=== PATIENT | female | born 1955 | race Caucasian/White ===

== ENCOUNTER 2016-07-08 18:20 | Emergency (ER) | payer SELFPAY ==
--- NOTE | ~2016-07-08 | CR63 ---
[facility] A Service of [facility] & [facility] RADIOLOGY TEXT RESULTS PATIENT: HARRISON VIRGEN LOCATION: [facility] : 59 UNIT #: [id number] AGE: [address]: Ramsey Demarco MD SEX: F ORDER DR: [id number] [facility] [address] [place], [place] [address] [id number] MR#: [id number] Acc #: [id number] NAME: HARRISON VIRGEN : 1955 SEX: F STUDY DATE/TIME: 07/08/2016 19:25 UNIT: [facility] ROOM: STUDY DESCRIPTION: CR Chest 2 View Attending Physician: Ramsey Demarco M.D. Referring Physician: Primary Care Physician No Ordering Physician: Ramsey Demarco M.D. Primary Care Physician: Primary Care Physician No MEDICAL IMAGING REPORT This report is preliminary unless electronic signature is present EXAM Chest PA and lateral, 07/08/2016 HISTORY Shortness of breath, fever and chest congestion, left side chest pain for 2 days. Smoking history. FINDINGS The cardiac and mediastinal structures are stable compared with 04/13/2015. The lungs are hyperinflated with emphysematous and fibrotic changes characteristic of COPD. There is an ill-defined nodular infiltrate or possibly mass in the left upper lobe measuring 1.5 cm. Correlation with chest CT with contrast is recommended for further evaluation. Infiltrate or fibrosis is seen in the left lung base. There are no pleural effusions. No pneumothorax. IMPRESSION 1. 1.5-cm nodule in the left upper lobe. Neoplasm is not excluded. Correlation with chest CT with contrast is recommended for further evaluation. 2. COPD with infiltrate or fibrosis left lower lobe. STAT * RESULT Dictated by... Grant Currie M.D. THIS IS AN ELECTRONICALLY VERIFIED REPORT Grant Currie M.D. at 07/09/2016 2:54 PM KRT/psc [facility] A Service of [facility] & [facility] RADIOLOGY TEXT RESULTS PATIENT: HARRISON VIRGEN LOCATION: [facility] : 59 UNIT #: [id number] AGE: [address]: Ramsey Demarco MD SEX: F ORDER DR: TD: 07/09/2016 01:37 JOB #: [id number] MEDICAL IMAGING REPORT COPY
--- NOTE | ~2016-07-08 | EKG ---
PATIENT: HARRISON VIRGEN UNIT #: [id number] Ventricular Rate: 101 BPM Atrial Rate: 101 BPM P-R Interval: 130 ms QRS Duration: 78 ms Q-T Interval: 356 ms QTC Calculation(Bezet): 461 ms P [place]: 88 degrees Calculated R [place]: 74 degrees Calculated T [place]: 77 degrees Diagnosis Line: Sinus tachycardia Diagnosis Line: Right atrial enlargement Diagnosis Line: Minimal voltage criteria for LVH, may be normal Diagnosis Line: variant Diagnosis Line: Borderline ECG Diagnosis Line: When compared with ECG of 11-APR-2015 21:07, Diagnosis Line: No significant change was found Diagnosis Line: Confirmed by MIKI CRAWLEY MD ([id number]) on Diagnosis Line: 07/11/2016 11:56:04 PM INTERPRETING MD: MISBAH VELA
[~2016-07-08 18:20] MED LIST: ADVAIR 250-501 EACH IH; ADVAIR 2501 DISK W/D PO; ALBUTEROL MININEB NEB; ALBUTEROL17 GM INH; AUGMENTIN875 M1 PO; BENTYL20 MG PO; COMBIVENT MININEB; COMBIVENT MININEB INH; CYANOCOBALAM1000 MCG PO; DELSYM COUGH C PO; DUONEB; FLEXERIL10 MG PO; HUMIBID-LA600 MG PO; HYDROCODON-ACE1 EAC7 PO; HYDROCODON-ACE1 EAC9 PO; LEVAQUIN PO; LEVAQUIN750 M1 PO; LEVAQUIN750 MG PO; LORTAB 7.5-5001 TAB PO; MOTRIN IB200 M1 PO; MUCINEX100 MG/BOX PO; NYSTATIN5 ML PO; OMEPRAZOLE20 M1 PO; PHENERGAN PO; PHENERGAN SUPP25 MG PR; PHENERGAN25 M1 PO; PHENERGAN25 MG PO; PREDNISONE PO; PREDNISONE10 MG PO; PROTONIX PO; SOLU-MEDRO40 MG/1 ML IVP; SYMBICORT INH; TYLENOL325 M1 PO; VITAMIN B-121000 MC1 PO; VOLTAREN75 MG PO; ZITHROMAX PO; ZOFRAN ODT4 MG PO
[2016-07-08 19:20] LABS: BASOPHIL% 0.2 % (0-2.5); EOSINOPHIL% 0.1 % (0.0-7.0); HEMATOCRIT 36.3 % (35.0-45.0); HEMOGLOBIN 12.1 gm/dL (12.0-16.0); LYMPHOCYTE# 1.1 X10e3 (1.0-3.5); LYMPHOCYTE% 15.2 % (17.0-45.0); MEAN CELL VOLUME 99.2 FL (83-96); MEAN CORPUSCULAR HGB CONC 33.3 g/dL (30-36); MEAN PLATELET VOLUME 7.2 FL (6.5-11.5); MONOCYTE# 1.2 X10e3 (0-1.0); NEUTROPHIL% 68.5 % (40-75); PLATELET COUNT 213 X10e3 (140-420); RED BLOOD COUNT 3.66 X10e (3.90-5.30); RED CELL DISTRIBUTION WIDTH 15.4 % (11.0-15.5); WHITE BLOOD COUNT 7.3 X10e3 (4.0-10.5)
[2016-07-08 19:28] LABS: DIFF IND NO
[2016-07-08 19:48] LABS: INFLUENZA A NEG (NEG); INFLUENZA B NEG (NEG)
[2016-07-08 19:59] LABS: ALBUMIN SERUM 3.7 g/dL (3.5-5.0); ALKALINE PHOSPHATASE 106 U/L (32-92); ALT (SGPT) 22 U/L (10-40); AST (SGOT) 26 U/L (10-42); BILIRUBIN, DIRECT 0.1 mg/dL (0.0-0.2); BILIRUBIN,INDIRECT 0.4 mg/dL (0.0-0.9); BILIRUBIN,TOTAL 0.5 mg/dL (0.2-2.0); BLOOD UREA NITROGEN 15 mg/dL (9-23); CALCIUM SERUM 8.5 mg/dL (8.4-10.2); CARBON DIOXIDE 25 mmol/L (22-31); CHLORIDE 94 mmol/L (100-111); CREATININE SERUM 0.6 mg/dL (0.6-1.4); GLOM FILT RATE Estimated ABOVE60 mL/min (>60); GLUCOSE FASTING 108 mg/dL (70-110); SODIUM 131 mmol/L (135-145)
[2016-07-08 20:05] LABS: POTASSIUM 2.8 mmol/L (3.5-5.1)
[2016-07-08 20:59] LABS: POC - CKMB 2.3 ng/mL (0.0-7.9); POC - TROPONIN <0.05 ng/mL (<=0.05)
[2016-07-12] MEDS ORDERED: PROMETHAZINE D118 ML PO (14:43)
[2016-07-12] MEDS ORDERED: PREDNISONE PO (14:44)
== END 2016-07-08 21:15 | disposition home or self-care (01) ==
LOC: CED 18:20
PROVIDERS: Emergency Medicine
DX: J44.1 Chronic obstructive pulmonary disease with (acute) exacerbation (principal); R22.2 Localized swelling, mass and lump, trunk; Z90.49 Acquired absence of other specified parts of digestive tract; F17.200 Nicotine dependence, unspecified, uncomplicated
CPT/HCPCS: 36415; 71020; 80048; 80076; 82553; 83735; 83880; 84484; 85025; 87804; 93005; 94640; 96361; 96365; 96375; 99284; J2405; J2930

== ENCOUNTER 2016-07-12 14:48 | Inpatient (IN) | payer SELFPAY ==
--- NOTE | ~2016-07-12 | CR72 ---
[facility] A Service of [facility] RADIOLOGY TEXT RESULTS PATIENT: HARRISON VIRGEN LOCATION: [facility] : 59 UNIT #: [id number] AGE: [address]: Sari Benz MD SEX: F ORDER DR: [id number] [place] [id number] [facility] [place], [place] [address] [id number] E MR#: [id number] Acc #: [id number] NAME: HARRISON VIRGEN. : 1955 SEX: F STUDY DATE/TIME: 07/12/2016 14:21 UNIT: [facility] ROOM: STUDY DESCRIPTION: CR Chest Single View Portable Attending Physician: Sonido Graham M.D. Ordering Physician: Rajan Brooks M.D. Primary Care Physician: Primary Care Physician No MEDICAL IMAGING REPORT This report is preliminary unless electronic signature is present EXAM Portable chest INDICATIONS Shortness of air for 2 days. COMPARISON 07/08/2016 FINDINGS A portable view of the chest was obtained. Heart size and vascularity are normal. The lungs are hyperinflated. There is faint infiltrate throughout most of the right lower lobe, which is new from the prior study. The left lung is clear. There is a nodular density in the left upper lobe measuring about 9 mm in diameter. There are CT chests from 04/12/2015 and 01/21/2015 and there has been an 11-mm density in that region on both those exams without change. IMPRESSION 1. Emphysematous changes. 2. Faint infiltrate in the right lower lobe, which is fairly extensive. 3. Nodular density left upper lobe, which seems to correspond with the nodular density seen on chest CTs in April 2015 and December 2014 without change. Dictated by... Maycol Conway M.D. THIS IS AN ELECTRONICALLY VERIFIED REPORT Maycol Conway M.D. at 07/12/2016 9:46 PM FEL/psc [facility] A Service of [facility] RADIOLOGY TEXT RESULTS PATIENT: HARRISON VIRGEN LOCATION: [facility] [id number] : [birth year] UNIT #: [id number] AGE: [address]: Sari Benz MD SEX: F ORDER DR: TD: 07/12/2016 20:13 JOB #: [id number] MEDICAL IMAGING REPORT COPY
--- NOTE | ~2016-07-12 | EKG ---
PATIENT: HARRISON VIRGEN UNIT #: [id number] Ventricular Rate: 137 BPM Atrial Rate: 137 BPM P-R Interval: 130 ms QRS Duration: 74 ms Q-T Interval: 280 ms QTC Calculation(Bezet): 422 ms P [place]: 89 degrees Calculated R [place]: 82 degrees Calculated T [place]: 93 degrees Diagnosis Line: Sinus tachycardia with Premature atrial complexes Diagnosis Line: Right atrial enlargement Diagnosis Line: Left ventricular hypertrophy with repolarization Diagnosis Line: abnormality Diagnosis Line: Abnormal ECG Diagnosis Line: When compared with ECG of 08-JUL-2016 18:17, Diagnosis Line: Premature atrial complexes are now Present Diagnosis Line: Non-specific change in ST segment in Anterior Diagnosis Line: leads Diagnosis Line: Nonspecific T wave abnormality now evident in Diagnosis Line: Inferior leads Diagnosis Line: T wave inversion now evident in Anterolateral Diagnosis Line: leads Diagnosis Line: Confirmed by MIKI CRAWLEY MD ([id number]) on Diagnosis Line: 07/13/2016 8:16:57 AM INTERPRETING MD: MISBAH VELA
--- NOTE | ~2016-07-12 | DS ---
Unit #: [id number] #: [id number] Patient: HARRISON VIRGEN [id number] [address] [address] [id number] I MR#: [id number] NAME: HARRISON VIRGEN. ROOM: 321 Age: 60 Sex: F Admission Date: 07/12/2016 : 1955 Discharge Date: Attending Physician: Edi Adams M.D. Primary Care Physician: No Primary Care Physician DISCHARGE SUMMARY DIAGNOSES ON ADMISSION 1. Acute respiratory failure. 2. Acute exacerbation of chronic obstructive pulmonary disease. DIAGNOSES ON DISCHARGE 1. Acute exacerbation of chronic obstructive pulmonary disease, improved. 2. Pneumonia. 3. Bronchiectasis. 4. Chronic obstructive pulmonary disease. 5. History of pulmonary embolism. 6. Bilateral pneumonia. CONSULTATIONS Dr. Garibay - Pulmonary consultation. LABS AND PROCEDURES DONE The patient's creatinine is 0.4, sodium 136, potassium is 3.8. WBC is 12.3, hemoglobin is 10.8, platelet count is 279. Potassium is 3.8, magnesium is 1.8 today. Urine for legionella antigen was negative. Urine for Strep pneumonia antigen was negative. Blood culture did not reveal any acute growth so far. CT scan of chest revealed dense consolidation in bilateral lobes and right lower, middle lobe and upper lobe and left lower lobe. Troponin was less than 0.03. HOSPITAL COURSE 60-year-old female was admitted to [facility] with shortness of air. Details are as per admission H and P. The patient was seen by Dr. Garibay in consultation and was treated with IV steroids and antibiotics. Patient has responded well to treatment and is feeling much better and wants to go home today. Therefore, she will be discharged home. Today on physical examination, her VITAL SIGNS reveal a temperature of 98.1, pulse is 82/minute, respiratory rate is 18/minute, blood pressure is 64/77. HEENT examination revealed no conjunctival congestion. Sclerae is Unit #: [id number] #: [id number] Patient: HARRISON VIRGEN not icteric. NECK is supple. Trachea is central. RESPIRATORY examination revealed breath sounds equal bilaterally. ABDOMEN is soft, nontender. Bowel sounds are present. EXTREMITIES reveals trace pedal edema. NEUROLOGICALLY, patient is alert to person, place and time. Strength is 4+ bilaterally. SKIN is warm and dry. RECOMMENDATIONS ON DISCHARGE Condition is stable. Activity is as tolerated. MEDICATIONS 1. Prednisone 20 mg, two tablets p.o. daily for five days. 2. DC Augmentin 875 mg, one p.o. b.i.d. for five days. 3. Zithromax 500 mg. 4. Patient stated that she has Symbicort inhaler at home. Therefore, I will advise her to use that and I will write her a prescription. 5. Will also write her a script for albuterol MDI. The plan was discussed in detail with patient who showed complete understanding. She was advised to call primary care physician or go to ER if her condition changes. FOLLOWUP Patient is advised to follow up with primary care physician in one week and follow up with Dr. Garibay as recommended. Dr. Garibay has recommended patient to follow up in two weeks and also have a CT scan of chest with him in two months. Dictated by... Jo Ann Joe/denton TD: 07/15/2016 12:19 JOB #: [id number] CC: Jose Garibay M.D. [facility], [facility]. DISCHARGE SUMMARY X Edi Adams MD DISCHARGE SUMMARY
--- NOTE | ~2016-07-12 | HP ---
Unit #: [id number] #: [id number] Patient: HARRISON VIRGEN [id number] [address] [place], [place] [address] [id number] E MR#: [id number] NAME: HARRISON VIRGEN ROOM: Age: 60 Sex: F Admission Date: 07/12/2016 : 1955 Attending Physician: Sonido Graham M.D. HISTORY AND PHYSICAL CHIEF COMPLAINT Short of breath, nausea, and pain. HISTORY OF PRESENT ILLNESS The patient is a 60-year-old female with a past medical history of COPD, pulmonary embolism, pneumothorax, and bowel obstruction, who presented to the emergency department for evaluation of the above. The patient states that she has not been feeling well since July 09, 2016. She states that she has had increasing shortness of breath, nonproductive cough, fever, and chills. She was apparently seen in the emergency department on July 08, 2016, for the same problem. She was placed on prednisone and is not feeling any better. In the emergency department, initial pulse and blood pressure were 137 and 123/61, respectively. Oxygen saturation was 91% on room air. Chest x-ray showed a right lower lobe infiltrate. CT of the chest, PE protocol, showed no PE. Lactic acid was 3. Arterial blood gas shows a pH of 7.49, PCO2 of 41.5, and PO2 of 58.9 on two liters. She was Zosyn, tobramycin, and linezolid in the emergency department, as well as 40 mEq of potassium and two liters of normal saline. She is being admitted to [facility] for evaluation and further treatment. PAST MEDICAL HISTORY 1. Admission to [facility] April 11-2014, for acute respiratory failure and healthcare-associated pneumonia. 2. Chronic obstructive pulmonary disease, not on home oxygen. The patient has seen Dr. Garibay in the past. 3. History of PE. 4. History of pneumothorax. 5. History of bowel obstruction. 6. Echocardiogram December 02, 2008, showed normal left ventricular systolic function. Right ventricular systolic function was also noted to be normal. PAST SURGICAL HISTORY 1. Surgery for bowel obstruction. 2. Hysterectomy. 3. Tonsillectomy. 4. Appendectomy. 5. section. 6. Cholecystectomy. SOCIAL HISTORY Unit #: [id number] #: [id number] Patient: HARRISON VIRGEN The patient continues to smoke electronic cigarettes. She denies alcohol or illicit drug use. She lives with her . Her code status is a Full Code. FAMILY HISTORY Notable for her father dying of lung cancer. ALLERGIES HEPARIN AND VANCOMYCIN. HOME MEDICATIONS Per the Discharge Summary from April 2015 include albuterol and Symbicort. Home medications will need to be reviewed and verified. REVIEW OF SYSTEMS A complete review of systems is negative except as indicated in the History of Present Illness. The patient states that she has maintained her weight. PHYSICAL EXAMINATION VITAL SIGNS: Temperature is 98, pulse 137, respirations 18, blood pressure 123/61, and oxygen saturation 91% on room air. GENERAL: Patient is a female who is awake and alert. She is somewhat anxious. HEENT: Head is atraumatic. Mucous membranes are moist. NECK: Supple. Trachea is midline. CARDIOVASCULAR: Tachycardia in the 110s. LUNGS: Decreased breath sounds bilaterally. Breathing is mildly labored with conversation. ABDOMEN: Soft and nontender with bowel sounds present in all four quadrants. EXTREMITIES: Nontender with no pedal edema. NEUROLOGIC: Patient is awake and alert. She follows commands. PSYCHIATRIC: Patient is anxious. She is cooperative. SKIN: Skin of examined areas is warm and dry. DIAGNOSTIC STUDIES LABORATORY: Arterial blood gas shows a pH of 7.491, PCO2 of 41.5, and PO2 of 58.9, on two liters. Lactic acid is 3. Comprehensive metabolic panel notable for potassium of 2.9, chloride 92, glucose 181, BUN and creatinine 25 and 0.8, respectively, alkaline phosphatase is 105, and albumin is 3.4. Complete blood count notable for white blood cell count of 23.7. BNP is 69. INR is 1.1. D-dimer was 1212. IMAGING: Chest x-ray shows a right lower lobe infiltrate. CT of the chest, PE protocol, shows no PE. CARDIOLOGY: EKG showed sinus tachycardia with premature atrial complex at a rate of 137 beats per minute. ASSESSMENT The patient is a 60-year-old female with: 1. Acute respiratory failure, hypoxic. 2. Pneumonia, community acquired. 3. Sepsis with lactic acid of 3. 4. Chronic obstructive pulmonary disease exacerbation with continued tobacco abuse. 5. Hypokalemia. The patient received 40 mEq of potassium orally in the Unit #: [id number] #: [id number] Patient: HARRISON VIRGEN emergency department. 6. History of pulmonary embolism. 7. History of pneumothorax. 8. History of bowel obstruction. PLAN 1. Admit to intermediate level. 2. Regular diet. 3. Normal saline at 75 mL/hour. 4. Supplemental oxygen 2-4 liters to maintain saturations greater than 92%. 5. Blood cultures x2. 6. Sputum culture and sensitivity. 7. Rocephin IV and azithromycin IV pending further workup. 8. DuoNebs q.4 hours while awake and q.2 hours p.r.n. 9. Solu-Medrol 80 mg IV q.12 hours. 10. Mucinex 600 mg p.o. b.i.d. 11. Procalcitonin level. 12. Consult Dr. Garibay regarding respiratory failure and pneumonia. 13. Sepsis protocol with repeat lactic acid. 14. Serial cardiac enzymes. 15. Check magnesium level. 16. Potassium/magnesium protocol. 17. Repeat labs in the morning including magnesium. 18. Protonix for GI prophylaxis since the patient will be on Solu-Medrol. 19. SCDs for DVT prophylaxis. 20. Additional workup and consultants based on above. 21. Regarding code status, the patient is a Full Code. 1. Dictated by Jo Ann Rebollar/aba TD: 07/12/2016 20:37 JOB #: [id number] HISTORY AND PHYSICAL X Sari Benz MD X HISTORY AND PHYSICAL
--- NOTE | ~2016-07-12 | CT16 ---
[facility] A Service of [facility] & [facility] RADIOLOGY TEXT RESULTS PATIENT: HARRISON VIRGEN LOCATION: [facility] 321-01 : 59 UNIT #: [id number] AGE: [address]: Edi Adams MD SEX: F ORDER DR: [id number] [facility] [address] [place], [place] [address] [id number] I MR#: [id number] #: [id number] NAME: HARRISON VIRGEN. : 1955 SEX: F STUDY DATE/TIME: 07/12/2016 17:36 UNIT: C3A PCU ROOM: 321 STUDY DESCRIPTION: CT Angio Chest for PE Attending Physician: Sari Benz M.D. Ordering Physician: Ed Doctor [id number] [facility] Primary Care Physician: Primary Care Physician No MEDICAL IMAGING REPORT This report is preliminary unless electronic signature is present EXAM CTA chest with contrast PE protocol, 07/12/2016 HISTORY 60-year-old female with shortness of air and chest pain for 3 days. COMPARISON CTA chest, 04/12/2015 TECHNIQUE Helical scan performed through the chest following the timed bolus administration of IV contrast per PE protocol. Coronal 3-D MIP reconstructions. Sagittal reformatted images. This CT exam was performed with one or more of the following radiation dose reduction techniques: automatic exposure control, adjustment of mA and/or kV according to patient size, and iterative reconstruction. FINDINGS There is adequate opacification of the pulmonary arteries but no filling defects noted. Thoracic aorta normal in course and caliber without dissection. Heart size is normal. No pericardial effusion. Multiple prominent mediastinal lymph nodes are again noted, similar to prior exam. These may be reactive. There is dense consolidation in the left lower lobe with a suspected trace left pleural effusion. Patchy infiltrates noted throughout the right lower lobe and medial aspect of the right middle lobe. There is some minimal patchy infiltrate in the lateral aspect of the right upper lobe. Findings most consistent with multifocal pneumonia. The bronchi in the bilateral lower lobes are fluid filled. Correlation for aspiration recommended. There is again noted a spiculated nodular density in the lateral aspect of the left upper lobe, which is not significantly changed [facility] A Service of [facility] & [facility] RADIOLOGY TEXT RESULTS PATIENT: HARRISON VIRGEN LOCATION: [facility]A 321-01 : 59 UNIT #: [id number] AGE: [address]: Edi Adams MD SEX: F ORDER DR: from prior chest CTs dating back to 04/21/2014. This most likely represents chronic scarring given greater than 2 years of stability. There are severe emphysematous changes throughout both lungs. No pneumothorax. Incidental scanning through the upper abdomen is unremarkable. No acute bony abnormality. IMPRESSION 1. Negative for pulmonary emboli. 2. Negative for thoracic aortic aneurysm/dissection. 3. Dense consolidation in the left lower lobe with patchy infiltrates in the right lower lobe, right middle lobe, and right upper lobe. There are also fluid-filled bronchi in the bilateral lower lobes. Findings most consistent with multifocal pneumonia. Aspiration is not excluded given the fluid filled lower lobe bronchi. 4. Severe emphysema. 5. Spiculated nodular density in the left upper lobe is not significantly changed since at 04/21/2014, most suggestive of chronic scarring giving greater than 2 years of stability. 6. Multiple prominent mediastinal lymph nodes are again noted and not significantly changed from previous examinations in 2014. This may be reactive. Continued followup suggested. Dictated by... Sanya Dos Santos M.D. THIS IS AN ELECTRONICALLY VERIFIED REPORT Sanya Dos Santos M.D. at 07/13/2016 6:47 PM HAMIDA/bryson TD: 07/13/2016 08:30 JOB #: [id number] MEDICAL IMAGING REPORT COPY
--- NOTE | ~2016-07-12 | CO ---
Unit #: [id number] #: [id number] Patient: HARRISON VIRGEN [id number] [address] [place], [place] [address] [id number] MR#: [id number] NAME: HARRISON VIRGEN. ROOM: 321 Age: 60 Sex: F Admission Date: 07/12/2016 : 1955 Attending Physician: Edi Adams M.D. Primary Care Physician: No Primary Care Physician Consultation Date: 07/13/2016 CONSULTATION REPORT REASON FOR CONSULTATION Pneumonia, COPD. HISTORY OF PRESENT ILLNESS This is a 60-year-old female has bad COPD with ongoing active electronic cigarette use who was in the hospital in 2014 with emphysema and pneumonia. She had an abnormal CAT scan with multiple areas of consolidation. At that time she underwent bronchoscopy, which was negative. She was supposed to follow up in my office but did not. When I asked her why, she said, "I just felt better." She has now had a several-day history of increasing shortness of breath, presented to the emergency room here and was told it was her COPD. She did not take antibiotics at that time. She then had fever, malaise, cough but no sputum. In the emergency room her chest x-ray and subsequent CT scan were abnormal, consistent with pneumonia. Fairly dense consolidation in the left lower lobe but not in the same area as previous CT scans. Marked emphysema was noted. She was treated with a variety of antibiotics and currently is on Zithromax and Rocephin and feels better. PAST MEDICAL HISTORY Past medical history is remarkable for emphysema, remote pulmonary embolism, pneumothorax, history of bowel obstruction, and then this pneumonia and abnormal CT scan in 2014. MEDICATIONS AT HOME She is on Symbicort 2 puffs twice a day and Ventolin as needed and states compliance. Other medications are unclear. ALLERGIES Heparin and vancomycin. SOCIAL HISTORY Electronic cigarettes. She still works in an office setting. FAMILY HISTORY No definite emphysema, but her father has lung cancer. REVIEW OF SYSTEMS Fever this weekend. Prior to this she did not have much in the way of wheezing, cough or sputum production. [place] like she was fairly well controlled on her Symbicort. With this she denied wheezing. She had cough but no sputum. No hemoptysis. No chest pain, palpitations, abdominal pain, melena, hematochezia, hematuria, dysuria, focal weakness, paresthesias, leg pain, swelling. She denies any difficulty swallowing. Further review Unit #: [id number] #: [id number] Patient: HARRISON VIRGEN S of systems is negative. PHYSICAL EXAMINATION GENERAL: Examination reveals a patient who is quite thin, but she denies weight loss. VITAL SIGNS: She had a T max of 100.3, now afebrile. Pulse 67, respiratory rate 16, blood pressure 116/65. 5'4", 96 pounds. BMI is 16. Weight has actually increased from 2015 when she weighed 84 pounds. HEENT: Pupils equal, round and reactive to light. Sclerae anicteric. Head atraumatic. Mucous membranes somewhat dry. She does have some natural teeth. NECK: Supple. No supraclavicular or cervical adenopathy appreciated. CHEST: Scattered wheeze, rhonchi. No definite consolidation. CARDIAC: Examination reveals a regular rate and rhythm. No pathologic murmur, rub or gallop. ABDOMEN: Abdomen is soft, nontender. No hepatomegaly or rebound. EXTREMITIES: Extremities reveal no clubbing, cyanosis or edema. No calf tenderness. Decreased muscle mass. NEUROLOGIC: Grossly intact. No focal muscular or sensory deficits. DIAGNOSTIC STUDIES IMAGING: Chest x-ray - Some faint toynp-fdqrtpv-khyy-left infiltrate. LABORATORY EXAMINATION: Arterial blood gases - pH 7.49, pCO2 42, pO2 59, and that was on 2 liters. Her BUN is 11, creatinine 0.4. INR was normal. Cardiac enzymes normal. White blood cell count is 15.4; it was 23.7. Hemoglobin is 10.4; it was 13.4. Suspect that is dilutional. No obvious bleeding noted. She had an nmien-5-sokjfxcoxjj level in the past, which was normal. Blood cultures are pending. Sputum has not been received. In the past no resistant organisms have been identified. CT scan - Fairly densely consolidated area of left lower lobe. Patchy infiltrates right and left. She has a somewhat spiculated area of abnormality in her left upper lobe, and that is stable for 2 years. She has some scattered mucus-filled bronchiectasis, as well. Marked emphysema noted. CARDIOVASCULAR: EKG - P pulmonale. Sinus tachycardia. IMPRESSION 1. Pneumonia, community acquired. Clinically improved. 2. Emphysema with some bronchospasm. 3. Ongoing active electronic cigarette use. 4. Bronchiectasis. 5. Anemia. Suspect, to some degree, dilutional. 6. Remote PE, remote pneumothorax. 7. Noncompliance with office followup. 8. Abnormal EKG. Possible cor pulmonale. PLAN Agree with current antibiotics; however, will change Rocephin to Zithromax for anaerobic coverage. I will ask speech to see for swallow evaluation. Check total immunoglobulin levels. I agree with steroids but will decrease dose and add Symbicort twice a day. Certainly no smoking is of great benefit. I have stressed the need for office followup and short-term CT scan followup. Thank you very much for allowing me to participate in the care of . Unit #: [id number] #: [id number] Patient: HARRISON VIRGEN. Dictated by... Jo Ann Hayes/michaela TD: 07/15/2016 08:50 JOB #: [id number] CONSULTATION REPORT X Jose Garibay MD CONSULTATION REPORT
[2016-07-12 14:36] LABS: ARTERIAL BLD GAS O2 SATURATION 88.8 % (90.0-100.0); ARTERIAL BLOOD GAS CARBOXY HB 1.1 %sat (0.0-9.0); ARTERIAL BLOOD GAS HCO3 31.6 mmol/L; ARTERIAL BLOOD GAS MET HB 0.9 %sat (0.0-2.0); ARTERIAL BLOOD GAS PCO2 41.5 mmHg (35.0-45.0); ARTERIAL BLOOD GAS pH 7.491 (7.350-7.450)
[2016-07-12 14:37] LABS: ARTERIAL BLOOD GAS ALLEN TEST NORMAL; ARTERIAL BLOOD GAS ART SITE RIGHT RADIAL; ARTERIAL BLOOD GAS DELIVERY NASAL CANNULA; ARTERIAL BLOOD GAS PO2 58.9 mmHg (80.0-100); ARTERIAL DRAW? YES
[~2016-07-12 14:48] MED LIST changes: +PROMETHAZINE D118 ML PO
[2016-07-12 15:02] LABS: BASOPHIL% 0.1 % (0-2.5); HEMATOCRIT 41.1 % (35.0-45.0); HEMOGLOBIN 13.4 gm/dL (12.0-16.0); LYMPHOCYTE# 0.6 X10e3 (1.0-3.5); LYMPHOCYTE% 2.5 % (17.0-45.0); MEAN CELL VOLUME 98.8 FL (83-96); MEAN CORPUSCULAR HEMOGLOBIN 32.3 PG (28-34); MEAN CORPUSCULAR HGB CONC 32.7 g/dL (30-36); MEAN PLATELET VOLUME 7.5 FL (6.5-11.5); MONOCYTE# 1.4 X10e3 (0-1.0); MONOCYTE% 5.7 % (3.0-12.0); NEUTROPHIL# 21.7 X10e3 (1.5-7.1); NEUTROPHIL% 91.7 % (40-75); PLATELET COUNT 321 X10e3 (140-420); RED BLOOD COUNT 4.16 X10e (3.90-5.30); RED CELL DISTRIBUTION WIDTH 15.6 % (11.0-15.5); WHITE BLOOD COUNT 23.7 X10e3 (4.0-10.5)
[2016-07-12 15:07] LABS: INR 1.1; PARTIAL THROMBOPLASTIN TIME 34.6 SECONDS (23.5-31.3); PROTHROMBIN TIME (PATIENT) 11.4 SECONDS (9.6-11.5)
[2016-07-12 15:08] LABS: DIFF IND YES
[2016-07-12 15:19] LABS: ALBUMIN SERUM 3.4 g/dL (3.5-5.0); ALKALINE PHOSPHATASE 105 U/L (32-92); ALT (SGPT) 16 U/L (10-40); AST (SGOT) 30 U/L (10-42); BILIRUBIN, DIRECT 0.2 mg/dL (0.0-0.2); BILIRUBIN,INDIRECT 0.4 mg/dL (0.0-0.9); BILIRUBIN,TOTAL 0.6 mg/dL (0.2-2.0); BLOOD UREA NITROGEN 25 mg/dL (9-23); BUN/CREATININE RATIO 31.25; CALCIUM SERUM 8.9 mg/dL (8.4-10.2); CARBON DIOXIDE 29 mmol/L (22-31); CHLORIDE 92 mmol/L (100-111); CREATININE SERUM 0.8 mg/dL (0.6-1.4); GLOM FILT RATE Estimated ABOVE60 mL/min (>60); GLUCOSE FASTING 181 mg/dL (70-110); PROTEIN TOTAL SERUM 8.2 g/dL (6.0-8.3); SODIUM 136 mmol/L (135-145)
[2016-07-12 15:23] LABS: POTASSIUM 2.9 mmol/L (3.5-5.1)
[2016-07-12 15:28] LABS: PLATELET ESTIMATE NORMAL (NORMAL); POIKILOCYTOSIS SL
[2016-07-12 19:47] LABS: MAGNESIUM 2.1 mg/dL (1.6-3.0)
[2016-07-12 20:05] LABS: PROCALCITONIN 6.75 NG/ML
[2016-07-12 23:03] LABS: CK TOTAL 45 IU/L (26-140)
[2016-07-13 05:37] LABS: HEMATOCRIT 31.9 % (35.0-45.0); LYMPHOCYTE# 0.4 X10e3 (1.0-3.5); LYMPHOCYTE% 2.4 % (17.0-45.0); MEAN CORPUSCULAR HEMOGLOBIN 32.1 PG (28-34); MEAN CORPUSCULAR HGB CONC 32.7 g/dL (30-36); MEAN PLATELET VOLUME 6.7 FL (6.5-11.5); MONOCYTE# 0.4 X10e3 (0-1.0); MONOCYTE% 2.3 % (3.0-12.0); NEUTROPHIL# 14.7 X10e3 (1.5-7.1); NEUTROPHIL% 95.3 % (40-75); PLATELET COUNT 216 X10e3 (140-420); RED BLOOD COUNT 3.26 X10e (3.90-5.30); RED CELL DISTRIBUTION WIDTH 15.6 % (11.0-15.5); WHITE BLOOD COUNT 15.4 X10e3 (4.0-10.5)
[2016-07-13 05:38] LABS: DIFF IND NO; HEMOGLOBIN 10.4 gm/dL (12.0-16.0)
[2016-07-13 06:08] LABS: CK TOTAL 38 IU/L (26-140)
[2016-07-13 06:14] LABS: ALBUMIN SERUM 2.6 g/dL (3.5-5.0); ALKALINE PHOSPHATASE 79 U/L (32-92); ALT (SGPT) 19 U/L (10-40); AST (SGOT) 37 U/L (10-42); BILIRUBIN,TOTAL 0.2 mg/dL (0.2-2.0); BLOOD UREA NITROGEN 11 mg/dL (9-23); CALCIUM SERUM 8.4 mg/dL (8.4-10.2); CARBON DIOXIDE 27 mmol/L (22-31); CHLORIDE 97 mmol/L (100-111); CREATININE SERUM 0.4 mg/dL (0.6-1.4); GLOM FILT RATE Estimated ABOVE60 mL/min (>60); GLUCOSE FASTING 161 mg/dL (70-110); MAGNESIUM 1.7 mg/dL (1.6-3.0); POTASSIUM 3.5 mmol/L (3.5-5.1); PROTEIN TOTAL SERUM 6.3 g/dL (6.0-8.3); SODIUM 135 mmol/L (135-145)
[2016-07-14 07:02] LABS: HEMATOCRIT 33.6 % (35.0-45.0); HEMOGLOBIN 10.8 gm/dL (12.0-16.0); MEAN CELL VOLUME 99.8 FL (83-96); MEAN CORPUSCULAR HEMOGLOBIN 32.1 PG (28-34); MEAN CORPUSCULAR HGB CONC 32.2 g/dL (30-36); MEAN PLATELET VOLUME 7.6 FL (6.5-11.5); RED BLOOD COUNT 3.36 X10e (3.90-5.30); WHITE BLOOD COUNT 12.3 X10e3 (4.0-10.5)
[2016-07-14 08:11] LABS: BLOOD UREA NITROGEN 13 mg/dL (9-23); CALCIUM SERUM 8.9 mg/dL (8.4-10.2); CARBON DIOXIDE 20 mmol/L (22-31); CHLORIDE 103 mmol/L (100-111); CREATININE SERUM 0.4 mg/dL (0.6-1.4); GLOM FILT RATE Estimated ABOVE60 mL/min (>60); GLUCOSE FASTING 134 mg/dL (70-110); MAGNESIUM 1.8 mg/dL (1.6-3.0); PHOSPHOROUS 3.5 mg/dL (2.5-4.6); POTASSIUM 3.8 mmol/L (3.5-5.1); SODIUM 136 mmol/L (135-145)
[2016-07-15 09:22] LABS: MAGNESIUM 1.8 mg/dL (1.6-3.0); POTASSIUM 3.8 mmol/L (3.5-5.1)
[2016-07-15] MEDS ORDERED: PREDNISONE PO (11:29)
[2016-07-15] MEDS ORDERED: AUGMENTIN875 M1 PO (11:30)
[2016-07-15] MEDS ORDERED: ZITHROMAX500 MG PO (11:30)
[2016-07-15] MEDS ORDERED: ALBUTEROL17 GM INH (11:32)
[2016-07-15] MEDS ORDERED: SYMBICORT INH (11:38)
[2016-07-16 02:40] LABS: IMMUNOGLOBULIN A 193 mg/dL (81-463); IMMUNOGLOBULIN E 36 kU/L (<=114); IMMUNOGLOBULIN G 583 mg/dL (694-1618); IMMUNOGLOBULIN M 98 mg/dL (48-271)
== END 2016-07-15 14:17 | disposition home or self-care (01) | DRG 871 ==
LOC: CED 14:48 → CEDOF 19:00 → C3A PCU 07-13 08:11
PROVIDERS: Emergency Medicine; Family Medicine; Internal Medicine
PROC: B32SYZZ Computerized Tomography (CT Scan) of Right Pulmonary Artery using Other Contrast (ICD-10-PCS; principal; 2016-07-12)
PROC: B32TYZZ Computerized Tomography (CT Scan) of Left Pulmonary Artery using Other Contrast (ICD-10-PCS; 2016-07-12)
DX: A41.9 Sepsis, unspecified organism (principal); J96.01 Acute respiratory failure with hypoxia; J18.9 Pneumonia, unspecified organism; J44.0 Chronic obstructive pulmonary disease with (acute) lower respiratory infection; J44.1 Chronic obstructive pulmonary disease with (acute) exacerbation; Z86.711 Personal history of pulmonary embolism; Z90.710 Acquired absence of both cervix and uterus; Z90.49 Acquired absence of other specified parts of digestive tract; F17.290 Nicotine dependence, other tobacco product, uncomplicated; Z88.1 Allergy status to other antibiotic agents; Z88.8 Allergy status to other drugs, medicaments and biological substances; E87.6 Hypokalemia; Z71.6 Tobacco abuse counseling; Z91.19 Patient's noncompliance with other medical treatment and regimen; Z80.1 Family history of malignant neoplasm of trachea, bronchus and lung; R94.31 Abnormal electrocardiogram [ECG] [EKG]
CPT/HCPCS: 36415; 36600; 71010; 71275; 80048; 80053; 80076; 80200; 82308; 82550; 82784; 82785; 82803; 83605; 83735; 83880; 84100; 84132; 84484; 85025; 85027; 85379; 85610; 85730; 87040; 87449; 87899; 92610; 93005; 94640; 94664; 94667; 94668; 94760; 96365; 96366; 96375; 99285; J0456; J0696; J2020; J2270; J2405; J2543; J2920; J2930; J3260; J3475; Q9967